=== PATIENT | male | born 1995 | race Caucasian/White ===

== ENCOUNTER 2023-03-15 17:31 | Emergency (ER) | payer BC, SELFPAY ==
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
--- NOTE | 2023-03-15 18:43 | RAD REPORT ---
EXAM DESCRIPTION: Ribs Right - 03/15/2023 6:02 pm CLINICAL HISTORY: CHEST PAIN COMPARISON: CHEST PA AND LAT 2 VIEW dated 02/13/2014 TECHNIQUE: Right ribs, 3 views. FINDINGS: No displaced rib fracture is evident. No aggressive rib lesion. No underlying pneumothorax, effusion, infiltrate or pulmonary contusion. IMPRESSION: Negative right rib series.
[2023-03-15 19:42] VITALS: TEMP 98.2
[2023-03-15 19:43] VITALS: BP 118/70; O2SAT 100
== END 2023-03-15 18:54 | disposition home or self-care (01) ==
LOC: ER 17:31
DX: S20.211A Contusion of right front wall of thorax, initial encounter (principal)
CPT/HCPCS: 99283